=== PATIENT | female | born 1945 | race Caucasian/White ===

== ENCOUNTER 2017-12-17 13:05 | Emergency (ER) | payer OTHER, MEDICARE ==
[~2017-12-17] VITALS: Ht 154.9 cm; Wt 73.9 kg
[2017-12-17 14:18] LABS: ABSOLUTE BASOPHIL COUNT 0 /CUMM (0.0-0.2); ABSOLUTE EOSINOPHIL COUNT 0.2 /CUMM (0.0-0.7); ABSOLUTE GRANULOCYTE CT 2.9 /CUMM (1.4-6.5); ABSOLUTE LYMPH COUNT 1.7 /CUMM (1.2-3.4); ABSOLUTE MONOCYTE COUNT 0.2 /CUMM (0.10-0.60); BASOPHIL % 0.4 % (0.0-2.0); EOSINOPHIL % 3.5 % (0-5); GRANULOCYTE % 57.7 % (42.2-75.2); HEMATOCRIT 40.5 % (37-47); MEAN CORPUSCULAR HGB 30.9 PG (27.0-31.0); MEAN CORPUSCULAR HGB CONC 34.3 G/DL (33.0-37.0); MEAN CORPUSCULAR VOLUME 89.8 FL (81.0-99.0); MEAN PLATELET VOLUME 8.7 FL (7.4-10.4); PLATELET COUNT 197 /CUMM (130-400); RBC DISTRIBUTION WIDTH 12.6 % (11.5-14.5); RED BLOOD CELL CT 4.51 /CUMM (4.20-5.40); WHITE BLOOD CELL COUNT 5.1 /CUMM (4.8-10.8)
--- NOTE | 2017-12-17 14:39 | ED GENERAL ADULT ---
History of Present Illness General Chief Complaint: General Adult Stated Complaint: "HX OF KIDNEY/GALL STONES" EXPERIECING SIMILAR S/S Source: patient Exam Limitations: no limitations Vital Signs & Intake/Output Vital Signs & Intake/Output Vital Signs Date Time Temp Pulse Resp B/P B/P Pulse O2 O2 Flow FiO2 Mean Ox Delivery Rate 12/17 1520 176/92 12/17 1513 98.0 73 18 186/62 99 Room Air 12/17 1419 99 Room Air 12/17 1311 98.5 64 16 161/77 98 Room Air Allergies Coded Allergies: amoxicillin (Intermediate, RASH 12/17/17) metformin (Intermediate, DIARRHEA - DEPENDS ON DOSING 10/26/15) Reconcile Medications Ondansetron (Zofran Odt) 4 MG TAB.RAPDIS 1 TAB SL TID PRN NAUSEA Triage Note: PRESENTS TO ED WITH LOWER BACK PAIN, NAUSEA AND INCREASE IN FLATULANCE. REPORTS TO HAVE HX OF RENAL STONES AND GALLSTONES IN THE PAST. Triage Nurses Notes Reviewed? yes Onset: Abrupt Duration: day(s): (1-2), constant, continues in ED Timing: recent history Injury Environment: home Severity: mild, moderate Severity Numbers: 3 No Modifying Factors: none Associated Symptoms: back pain LMP (ages 10-50): post menopausal : No Patient currently breastfeeds: No HPI: 72-year-old female past medical history of hyperlipidemia, [id number] diabetes, kidney stones, gallstones presents for evaluation of lower back pain. Patient states that the pain is located in both sides of her lower back does not radiate. It is worse with movement or touching the area described as a dull ache. She also reports associated increase in flatulence and nausea. No vomiting no diarrhea no trauma no numbness or tingling of chest pain or shortness of breath. She states that symptoms feel similar to previous kidney stones with much less severe. Currently the pain as a 3 out of 10. He is worried it'll become more severe. She is not taking any medicine for the pain. She denies any abdominal pain. She is eating and drinking normally. No fevers. No abdominal surgeries. (David Goode) Past History Travel History Traveled to [place] past 21 day No Medical History Any Pertinent Medical History? see below for history Neurological: NONE EENT: NONE Cardiovascular: hyperlipidemia Respiratory: NONE Gastrointestinal: NONE Hepatic: NONE Renal: NONE Musculoskeletal: NONE Psychiatric: NONE Endocrine: diabetes, hypothyroidism Blood Disorders: VITAMIN D DEFICIENCY Surgical History Surgical History: N Psychosocial History What is your primary language [place] Tobacco Use: Never used Family History Hx Contributory? No (David Goode) Review of Systems Review of Systems Constitutional: Reports: no symptoms. EENTM: Reports: no symptoms. Respiratory: Reports: no symptoms. Cardiovascular: Reports: no symptoms. GI: Reports: see HPI, bloating, nausea. Genitourinary: Reports: no symptoms. Musculoskeletal: Reports: see HPI, back pain. Skin: Reports: no symptoms. Neurological/Psychological: Reports: no symptoms. Hematologic/Endocrine: Reports: no symptoms. Immunologic/Allergic: Reports: no symptoms. All Other Systems: Reviewed and Negative (David Goode) Physical Exam Physical Exam General Appearance: well developed/nourished, no apparent distress, alert, awake Head: atraumatic, normal appearance Eyes: Bilateral: normal appearance, PERRL, EOMI. Ears, Nose, Throat: hearing grossly normal Neck: normal inspection, supple, full range of motion Respiratory: normal breath sounds, chest non-tender, no respiratory distress, lungs clear Cardiovascular: regular rate/rhythm, normal peripheral pulses Peripheral Pulses: 2+ radial (R), 2+ radial (L) Gastrointestinal: normal bowel sounds, soft, non-tender, no organomegaly Back: normal inspection, normal range of motion, LUMBAR SPINE AND PARASPINOUS MUSCLES TENDER TO PALPATION BILATERALLY. nO cva TENDERNESS. nO STEP-OFFS OR DEFORMITIES NO RASHES NO BRUISING SWELLING OR ABRASIONS, PAIN IS REPRODUCIBLE WITH RANGE OF MOTION ALSO Extremities: normal inspection, normal range of motion, no edema Neurologic/Psych: no motor/sensory deficits, awake, alert, oriented x 3, normal gait Reflexes: 1+: knee (R), knee (L). Skin: intact, normal color, warm/dry Lymphatic: no anterior cervical jose Core Measures ACS in differential dx? No CVA/TIA Diagnosis: No Sepsis Present: No Sepsis Focused Exam Completed? No (David Goode) Progress Differential Diagnoses I considered the following diagnoses in my evaluation of the patient: [Muscle strain, herniated disc, fracture, pyelonephritis, UTI, kidney stone, cholecystitis, pancreatitis, gastritis, AAA] Plan of Care: Orders Procedure Date/time Status TROPONIN LEVEL 12/17 1341 Complete LIPASE 12/17 1341 Complete COMPREHENSIVE METABOLIC PANEL 12/17 1341 Complete CBC WITHOUT DIFFERENTIAL 12/17 134 Complete URINALYSIS 12/17 1312 Complete Laboratory Tests 12/17/17 1409: Anion Gap 8, Estimated GFR > 60, BUN/Creatinine Ratio 25.6 H, Glucose 104 H, Calcium 9.3, Total Bilirubin 0.7, AST 19, ALT 17, Alkaline Phosphatase 86, Troponin I < 0.01, Total Protein 7.0, Albumin 3.9, Globulin 3.1, Albumin/ Globulin Ratio 1.3, Lipase 61, CBC w Diff NO MAN DIFF REQ, RBC 4.51, MCV 89.8, MCH 30.9, MCHC 34.3, RDW 12.6, MPV 8.7, Gran % 57.7, Lymphocytes % 33.6, Monocytes % 4.8, Eosinophils % 3.5, Basophils % 0.4, Absolute Granulocytes 2.9, Absolute Lymphocytes 1.7, Absolute Monocytes 0.2, Absolute Eosinophils 0.2, Absolute Basophils 0 12/17/17 1323: Urine Color STRAW, Urine Clarity CLEAR, Urine pH 6.0, Ur Specific [place] 1.010, Urine Protein NEG, Urine Ketones NEG, Urine Nitrite NEG, Urine Bilirubin NEG, Urine Urobilinogen 0.2, Ur Leukocyte Esterase NEG, Ur Microscopic EXAM NOT REQUIRED, Urine Hemoglobin NEG, Urine Glucose >=1000 H Seen and evaluated. She is here with bilateral lower back pain. This pain has been present for 1-2 days. It does feel similar to previous kidney stones and much less severe. She has no urinary symptoms no abdominal pain no chest pain or shortness of breath and dizziness or lightheadedness. She does report associated nausea but no vomiting. She's been eating and drinking. The pain is currently very mild 3 attention not taking any medicine for this pain. Patient is medicated with Tylenol and Zofran labs CT scan ordered. Blood work does not show any acute findings. Urine is clean. CT scan shows a right 2 mm renal stone without hydronephrosis. Patient continues report mild 3 out of 10 pain. She's been able tolerate food and fluids here. Reviewed results of today's visit with patient. Advised her to continue Tylenol as needed. Follow-up with urology and primary care doctor to review all results of today's visit. Discussed return precautions in detail case discussed with Dr. KHAN and he agrees. Diagnostic Imaging: Viewed by Me: CT Scan. Discussed w/RAD: CT Scan. Radiology Impression: PATIENT: GUSTAVO BLANCO PRESENT AGE: 72 PATIENT ACCOUNT NO: [id number] : 47 LOCATION: [facility] ORDERING PHYSICIAN: David CHATMAN SERVICE DATE: 12/17/17 EXAM TYPE: CAT - CT ABD & PELVIS W/O IV CONTRAS EXAMINATION: CT ABDOMEN AND PELVIS WITHOUT CONTRAST CLINICAL INFORMATION: Bilateral lower back pain and nausea. COMPARISON: Previous CT July 2012. TECHNIQUE: Multidetector volumetric imaging was performed from the superior aspect of the liver through the pubic symphysis. Sagittal and coronal reformatted images were obtained on the technologist's workstation. DLP: 535 mGy-cm. FINDINGS: LUNG BASES: The visualized lung bases are unremarkable. LIVER, GALLBLADDER, AND BILIARY TREE: The liver is normal in size, shape, and attenuation. No focal hepatic lesion or biliary ductal dilatation is present. The gallbladder is unremarkable with no evidence of radiopaque gallstones, gallbladder wall thickening, or obvious pericholecystic inflammatory changes. PANCREAS: There are small calcifications in the head of the pancreas questionable for evidence of chronic pancreatitis. Pancreas is otherwise unremarkable. SPLEEN: Unremarkable. ADRENAL GLANDS: Unremarkable. KIDNEYS AND URETERS: There is a 2 mm stone in the upper pole of the right kidney. The kidneys are otherwise unremarkable. No hydronephrosis, ureteral dilatation or ureteral stone is seen. BLADDER: Unremarkable. GASTROINTESTINAL TRACT: There is evidence of diverticulosis. Small and large bowel is otherwise unremarkable. The appendix is unremarkable. ABDOMINAL WALL: No significant hernia is appreciated. LYMPH NODES: There are no enlarged lymph nodes. There is no ascites. VASCULAR: Unremarkable. PELVIC VISCERA: There is a 1.8 cm calcification adjacent to the posterior uterine fundus probably representing an exophytic fibroid. Adnexa are unremarkable. OSSEOUS STRUCTURES: There are degenerative changes of the spine. IMPRESSION: Small nonobstructing right renal stone. Diverticulosis. Probable small calcified uterine fibroid. DICTATED BY: Cammy Enriquez MD DATE/TIME DICTATED:12/17/171506 SVP GROUP DIRECTOR:BRANDY DATE/TIME TRANSCRIBED:12/17/171506 CONFIDENTIAL, DO NOT COPY WITHOUT APPROPRIATE AUTHORIZATION. <Electronically signed in Other Vendor System> SIGNED BY: Cammy Enirquez MD 12/17/17 1606 Initial ED EKG: none (David Goode) Departure Departure Disposition: HOME OR SELF CARE Condition: Stable Clinical Impression Primary Impression: Low back pain Qualifiers: Chronicity: acute Back pain laterality: bilateral Sciatica presence : without sciatica Qualified Code: M54.5 - Low back pain Referrals: Josefa CALDERON,Yvette Collins (PCP/Family) Pa De Paz MD Additional Instructions: Rest, avoid excessive heavy lifting bending or physical activity. Use Tylenol 1000 mg every 6 hours as needed for pain. Zofran for nausea. Follow-up with her primary care doctor to review all results of today's visit. Also follow-up with provided urologist. Monitor your symptoms return with any concerns. Departure Forms: Customer Survey General Discharge Information Prescriptions: Current Visit Scripts Ondansetron (Zofran Odt) 1 TAB SL TID PRN NAUSEA #10 TAB (David Goode) PA/[employer]ON AND RECTAL SURGEON Co-Sign Statement Statement: ED Attending supervision documentation- x I saw and evaluated the patient. I have also reviewed all the pertinent lab results and diagnostic results. I agree with the findings and the plan of care as documented in the PA's/COLON AND RECTAL SURGEON's documentation. [] I have reviewed the ED Record and agree with the PA's/COLON AND RECTAL SURGEON's documentation. [] Additions or exceptions (if any) to the PAs/COLON AND RECTAL SURGEON's note and plan are summarized below: [] (Gunner CALDERON,Gabriel) Critical Care Note Critical Care Note Critical Care Time: non-applicable (David Goode)
--- NOTE | 2017-12-17 16:06 | CT SCAN REPORT ---
EXAMINATION: CT ABDOMEN AND PELVIS WITHOUT CONTRAST CLINICAL INFORMATION: Bilateral lower back pain and nausea. COMPARISON: Previous CT July 2012. TECHNIQUE: Multidetector volumetric imaging was performed from the superior aspect of the liver through the pubic symphysis. Sagittal and coronal reformatted images were obtained on the technologist's workstation. DLP: 535 mGy-cm. FINDINGS: LUNG BASES: The visualized lung bases are unremarkable. LIVER, GALLBLADDER, AND BILIARY TREE: The liver is normal in size, shape, and attenuation. No focal hepatic lesion or biliary ductal dilatation is present. The gallbladder is unremarkable with no evidence of radiopaque gallstones, gallbladder wall thickening, or obvious pericholecystic inflammatory changes. PANCREAS: There are small calcifications in the head of the pancreas questionable for evidence of chronic pancreatitis. Pancreas is otherwise unremarkable. SPLEEN: Unremarkable. ADRENAL GLANDS: Unremarkable. KIDNEYS AND URETERS: There is a 2 mm stone in the upper pole of the right kidney. The kidneys are otherwise unremarkable. No hydronephrosis, ureteral dilatation or ureteral stone is seen. BLADDER: Unremarkable. GASTROINTESTINAL TRACT: There is evidence of diverticulosis. Small and large bowel is otherwise unremarkable. The appendix is unremarkable. ABDOMINAL WALL: No significant hernia is appreciated. LYMPH NODES: There are no enlarged lymph nodes. There is no ascites. VASCULAR: Unremarkable. PELVIC VISCERA: There is a 1.8 cm calcification adjacent to the posterior uterine fundus probably representing an exophytic fibroid. Adnexa are unremarkable. OSSEOUS STRUCTURES: There are degenerative changes of the spine. IMPRESSION: Small nonobstructing right renal stone. Diverticulosis. Probable small calcified uterine fibroid.
[2017-12-17 16:25] VITALS: BP 168/84
[2017-12-17] MEDS ORDERED: ZOFRAN ODT4 M1 SL (16:35)
== END 2017-12-17 16:35 ==
LOC: ERH 13:05
PROVIDERS: Physician Assistant Medical
DX: M54.5 Low back pain (principal); R11.0 Nausea; R14.3 Flatulence
CPT/HCPCS: 74176; 81003; J3101